=== PATIENT | female | born 1985 | race Caucasian/White ===

== ENCOUNTER 2022-12-04 19:55 | Observation (INO) ==
[2022-12-04] MEDS ORDERED: KEPPRA INJ 500 MG in NS 100 ML IV 100 ML IV ONE (20:27)
[2022-12-04] MEDS ORDERED: NS 1,000 ML IV 1,000 ML IV ONE (20:30)
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
[2022-12-04] MEDS ORDERED: NS 100 ML IV 100 ML ONE (20:35)
[2022-12-04] MEDS ORDERED: NS 1,000 ML IV 1,000 ML ONE (20:35)
[2022-12-04 20:59] LABS: BASOPHILS # (AUTO) 0.1 X10^3/uL (0.0-0.1); BASOPHILS % (AUTO) 0.9 % (0.2-1.0); EOSINOPHILS # (AUTO) 0.1 x10^3/uL (0.0-0.2); EOSINOPHILS % (AUTO) 0.9 % (0.9-2.9); HEMATOCRIT 45.5 % (36.0-47.0); HEMOGLOBIN 15.3 g/dL (12.0-16.0); LYMPHOCYTES # (AUTO) 2.5 X10^3/uL (1.3-2.9); LYMPHOCYTES % (AUTO) 17.4 % (21.0-51.0); MEAN CORPUSCULAR HEMOGLOBIN 26.8 pg (27.0-34.0); MEAN CORPUSCULAR HGB CONC 33.7 g/dL (33.0-35.0); MEAN CORPUSCULAR VOLUME 79.5 fL (80.0-100.0); MEAN PLATELET VOLUME 8.2 fL (7.4-11.0); MONOCYTES % (AUTO) 7.3 % (0.0-13.0); NEUTROPHILS # (AUTO) 10.5 x10^3/uL (2.2-4.8); NEUTROPHILS % (AUTO) 73.5 % (42.0-75.0); PLATELET COUNT 431 X10^3/uL (150.0-450.0); RED BLOOD COUNT 5.72 X10^6/uL (3.5-5.4); RED CELL DISTRIBUTION WIDTH 15.1 % (11.6-16.5); WHITE BLOOD COUNT 14.3 X10^3/uL (3.6-10.0)
[2022-12-04 21:10] LABS: ALANINE AMINOTRANSFERASE 48 Units/L (12-78); ALBUMIN 4.3 g/dL (3.4-5.0); ALKALINE PHOSPHATASE 72 Units/L (46-116); ASPARTATE AMINO TRANSFERASE 23 Units/L (15-37); BLOOD UREA NITROGEN 10 mg/dL (7-18); CALCIUM 9.3 mg/dL (8.5-10.1); CARBON DIOXIDE 26.2 mmol/L (21-32); CHLORIDE 101 mmol/L (98-107); CREATININE 0.85 mg/dL (0.55-1.02); GLUCOSE 98 mg/dL (65-99); POTASSIUM 3.1 mmol/L (3.5-5.1); SODIUM 140 mmol/L (136-145); TOTAL PROTEIN 9.6 g/dL (6.4-8.2); eGFR NON BLACK RACES > 60 (>60)
[2022-12-05 00:37] LABS: BILIRUBIN,URINE NEGATIVE (NEGATIVE); BLOOD/HEMOGLOBIN,URINE NEGATIVE (NEGATIVE); GLUCOSE, URINE NEGATIVE (NEGATIVE); KETONES,URINE 2+ (NEGATIVE); LEUKOCYTE ESTERASE ,URINE NEGATIVE (NEGATIVE); NITRITES,URINE NEGATIVE (NEGATIVE); PROTEIN,URINE 2+ (NEGATIVE); UROBILINOGEN,URINE 1+ (NORMAL)
[2022-12-05 00:43] LABS: APPEARANCE,URINE CLEAR (CLEAR); COLOR,URINE DARK YELLOW (YELLOW); RBC,URINE NONE SEEN /HPF (0-3); SQUAMOUS EPITHELIAL CELL,UR FEW /HPF (NEGATIVE)
[2022-12-05 00:44] LABS: BACTERIA,URINE TRACE /HPF (NEGATIVE)
[2022-12-05] MEDS ORDERED: KEPPRA INJ 500 MG in NS 100 ML IV 100 ML IV ONE (02:18)
[2022-12-05] MEDS ORDERED: NS 100 ML IV 100 ML ONE (02:28)
[2022-12-05] MEDS ORDERED: NS 1,000 ML IV 1,000 ML IV SCH (04:31)
[2022-12-05 05:25] VITALS: BMI 30.7
[2022-12-05 06:48] LABS: BASOPHILS # (AUTO) 0.1 X10^3/uL (0.0-0.1); BASOPHILS % (AUTO) 0.6 % (0.2-1.0); EOSINOPHILS # (AUTO) 0.1 x10^3/uL (0.0-0.2); EOSINOPHILS % (AUTO) 0.8 % (0.9-2.9); HEMATOCRIT 40.3 % (36.0-47.0); HEMOGLOBIN 13.4 g/dL (12.0-16.0); LYMPHOCYTES # (AUTO) 3.2 X10^3/uL (1.3-2.9); LYMPHOCYTES % (AUTO) 27.3 % (21.0-51.0); MEAN CORPUSCULAR HEMOGLOBIN 26.5 pg (27.0-34.0); MEAN CORPUSCULAR HGB CONC 33.2 g/dL (33.0-35.0); MEAN CORPUSCULAR VOLUME 79.9 fL (80.0-100.0); MEAN PLATELET VOLUME 8.9 fL (7.4-11.0); MONOCYTES # (AUTO) 0.9 x10^3/uL (0.3-0.8); MONOCYTES % (AUTO) 7.9 % (0.0-13.0); NEUTROPHILS # (AUTO) 7.4 x10^3/uL (2.2-4.8); NEUTROPHILS % (AUTO) 63.4 % (42.0-75.0); PLATELET COUNT 340 X10^3/uL (150.0-450.0); RED BLOOD COUNT 5.04 X10^6/uL (3.5-5.4); RED CELL DISTRIBUTION WIDTH 15.1 % (11.6-16.5); WHITE BLOOD COUNT 11.7 X10^3/uL (3.6-10.0)
[2022-12-05 06:57] LABS: ALANINE AMINOTRANSFERASE 37 Units/L (12-78); ALBUMIN 3.4 g/dL (3.4-5.0); ALKALINE PHOSPHATASE 53 Units/L (46-116); ASPARTATE AMINO TRANSFERASE 17 Units/L (15-37); BLOOD UREA NITROGEN 9 mg/dL (7-18); CARBON DIOXIDE 20.8 mmol/L (21-32); CHLORIDE 106 mmol/L (98-107); CREATININE 0.63 mg/dL (0.55-1.02); GLUCOSE 111 mg/dL (65-99); TOTAL PROTEIN 7.6 g/dL (6.4-8.2); eGFR NON BLACK RACES > 60 (>60)
[2022-12-05 07:02] LABS: COR NA(FOR HYPERGLY) 142 mmol/L (136-145); POTASSIUM 2.6 mmol/L (3.5-5.1); SODIUM 142 mmol/L (136-145)
[2022-12-05] MEDS ORDERED: MAGNESIUM SULFATE 1 GRAM/100 mL PREMIX 1 G/100 ML BAG IV PRN (07:11)
[2022-12-05] MEDS ORDERED: K-DUR TAB 20 MEQ PO PRN (07:11)
[2022-12-05] MEDS ORDERED: KLOR-CON PO PRN (07:11)
[2022-12-05] MEDS ORDERED: KEPPRA INJ 500 MG in NS 100 ML IV 100 ML IV SCH ×2 (09:00)
[2022-12-05] MEDS ORDERED: MAG-OX TAB PO SCH (09:00)
[2022-12-05] MEDS ORDERED: K-DUR TAB 20 MEQ PO SCH ×3 (09:00→20:00)
[2022-12-05] MEDS ORDERED: NS + KCL 20 MEQ/L 1,000 ML with MAGNESIUM SULFATE 50% INJ VIAL 1 G IV SCH ×2 (10:00)
[2022-12-05] MEDS ORDERED: CONSULT PHARMACY - POTASSIUM & MAGNESIUM XX SCH (11:00)
[2022-12-05 11:35] LABS: ALANINE AMINOTRANSFERASE 34 Units/L (12-78); ALBUMIN 3.2 g/dL (3.4-5.0); ALKALINE PHOSPHATASE 55 Units/L (46-116); ASPARTATE AMINO TRANSFERASE 14 Units/L (15-37); BLOOD UREA NITROGEN 10 mg/dL (7-18); CALCIUM 7.7 mg/dL (8.5-10.1); CARBON DIOXIDE 23.2 mmol/L (21-32); CHLORIDE 108 mmol/L (98-107); COR CA(FOR HYPOALB) 8.3 mg/dL (8.5-10.1); CREATINE KINASE 30 Units/L (26-192); CREATININE 0.72 mg/dL (0.55-1.02); GLUCOSE 99 mg/dL (65-99); SODIUM 143 mmol/L (136-145); TOTAL PROTEIN 7.2 g/dL (6.4-8.2); eGFR NON BLACK RACES > 60 (>60)
[2022-12-05 12:02] LABS: POTASSIUM 2.5 mmol/L (3.5-5.1)
[2022-12-05] MEDS ORDERED: NEURONTIN CAP 100 MG PO PRN (15:59)
[2022-12-05] MEDS ORDERED: KEPPRA INJ 1,500 MG in NS 100 ML IV 100 ML IV ONE (16:43)
[2022-12-05] MEDS ORDERED: NEURONTIN CAP 100 MG ONE (17:18)
[2022-12-05] MEDS ORDERED: K-DUR TAB 20 MEQ PO ONE (18:22)
[2022-12-05] MEDS: K-DUR TAB 20 MEQ PO SCH ×2 (18:26→20:15)
[2022-12-05] MEDS ORDERED: NS IV SCH ×2 (18:30)
[2022-12-05] MEDS ORDERED: POTASSIUM CHLORIDE IV SCH ×2 (18:30)
[2022-12-05] MEDS ORDERED: KEPPRA TAB 500 MG ONE (19:14)
[2022-12-05 19:38] VITALS: BP 161/90; PULSE 64; RESP 18; TEMP 98.4; O2SAT 97
[2022-12-06] MEDS ORDERED: KEPPRA TAB 500 MG PO SCH (09:00)
== END 2022-12-05 21:20 | disposition left against medical advice (07) ==
LOC: ER 19:55 → MED/SURG 19:55
PROVIDERS: ADMIT Internal Medicine; ATTEND Internal Medicine